=== PATIENT | female | born 1955 | race Caucasian/White ===

== ENCOUNTER 2022-02-17 15:53 | Emergency (ER) | payer MEDICARE, SELFPAY ==
[2022-02-17 16:42] VITALS: BP 194/79; PULSE 71; RESP 18; TEMP 36.9; O2SAT 99
--- NOTE | 2022-02-17 16:42 | ED.SKABFB ---
HPI - Skin/Abscess/Foreign Bdy General Chief complaint: Skin/Abscess/Foreign Body Stated complaint: RASH ON FACE Time Seen by Provider: 02/17/22 16:27 Source: patient, RN notes reviewed and old records reviewed Mode of arrival: ambulatory Limitations: no limitations History of Present Illness HPI narrative: 66-year-old female presents to the [facility] with a pink raised firm area to the medial aspect left eyebrow. Patient reports that it has been there approximately 1 week. Recently finished antibiotics, doxycycline and Cefzil Area is not hot to touch. States that on 30 January she saw her eye doctor. On 03 February was treated for cellulitis of her right arm. Noticed this swelling about 1 week ago. States that she has had shingles in the past. Small abrasion noted to the top of it. No fluctuance. No increased warmth. No vesicular areas. States that she did pluck her eyebrows about a week or 2 ago. Onset (ago): day(s) () Related Data Home Medications Medication Instructions Recorded Confirmed atenolol 50 mg tablet 50 mg DIRECTED 02/17/22 02/17/22 empagliflozin 25 mg tablet 25 mg DIRECTED 02/17/22 02/17/22 (Jardiance) gabapentin 300 mg capsule 300 mg DIRECTED 02/17/22 02/17/22 glimepiride 4 mg tablet 4 mg DIRECTED 02/17/22 02/17/22 insulin degludec 200 unit/mL (3 1 unit subcut DIRECTED 02/17/22 02/17/22 mL) subcutaneous pen (Tresiba FlexTouch U-200 insulin) metformin 500 mg tablet,extended 500 mg PO DIRECTED 02/17/22 02/17/22 release 24 hr simvastatin 40 mg tablet 40 mg DIRECTED 02/17/22 02/17/22 Allergies Allergy/AdvReac Type Severity Reaction Status Date / Time adhesive Allergy Intermediate RASH Verified 11/26/16 10:58 Review of Systems Review of Systems: All systems reviewed & are unremarkable except as noted in HPI and below Constitutional: Constitutional: Reports no additional constitutional complaints, Denies chills and Denies fever(s) Eyes: Eyes: Reports no additional eye complaints ENT: Reports system reviewed and no additional complaints, except as documented Cardiovascular: Cardiovascular: Reports no additional cardiovascular complaints Respiratory: Respiratory: Reports no additional respiratory complaints Gastrointestinal: Gastrointestinal: Reports no additional gastrointestinal complaints Musculoskeletal: Musculoskeletal: Reports no additional musculoskeletal complaints Integumentary/Breasts: Skin/Breast: Reports as per HPI Neurologic: Reports system reviewed and no additional complaints, except as documented Psychiatric: Psychiatric: Reports no additional psychiatric complaints Allergic/Immunologic: Allergic/Immunologic: Reports no additional allergic/immunologic complaints [facility] Past Medical History Medical History (Updated 02/17/22 @ 20:33 by Manasa Khan APRN) Diabetes Comments At the time of my signature, I reviewed and agree with the nursing past medical, surgical, social, and family history. There is no relevant family history pertinent to the patient complaint. Exam Const: General: comfortable, no acute distress, well developed, alert, ill appearing chronically and well nourished Nutritional Appearance: well nourished and obese Orientation/consciousness: patient oriented x3 Limitations: no limitations HENMT: Head: normal to inspection Ears: external ears normal, TM's normal bilaterally and EAC's normal Face/Nose/Sinus: Normal external nose present and Normal nares present Face and sinus: normal facial exam and sinuses nontender Face images: 1. 1 cm firm cystic lesion noted, pink, not red or hot to touch. Patient describes it as itchy and painful. Abrasion noted to the center of the cystic area Mouth: Yes Normal oral and palatal mucosa present, Yes lip normal and Yes moist mucous membranes Throat: posterior oropharynx normal and uvula midline Eyes: General: appearance normal, both eyes and all related structures Conjunctivae: con
[2022-02-17 16:57] VITALS: BP 160/94
== END 2022-02-17 16:57 | disposition home or self-care (01) ==
PROVIDERS: Emergency Provider Nurse Practitioner; PCP Internal Medicine
DX: L03.211 Cellulitis of face (principal); E11.9 Type 2 diabetes mellitus without complications
CPT/HCPCS: 99213; G0463

== ENCOUNTER 2022-12-17 10:56 | Day surgery (SDC) | payer MEDICARE, SELFPAY ==
[2022-12-04 11:28] VITALS: BMI 37.5
[2022-12-17 11:35] VITALS: BP 175/140; PULSE 64; RESP 20; TEMP 36.6; O2SAT 96
--- NOTE | 2022-12-17 11:38 | P.HP_ITS ---
History of Present Illness History of Present Illness Consent: Risks, benefits, and alternatives have been discussed and questions answered. Patient agrees to proceed with procedure. Chief complaint: History of Colon Polyps Narrative: Michelle Caicedo is a 67 year old female Presents for screening colonoscopy. Patient's current weight appetite and bowel movements are normal. Patient denies abdominal pain. She has had no bleeding. Family history noncontri butory. Is colonoscopy 2017 revealed a benign tubular adenoma. Review of Systems Review of Systems: Review of systems is noncontributory. [facility] Past Medical History Medical History (Updated 12/17/22 @ 11:39 by Go Mcmahon MD) Diabetes Social History Social History Smoking status: Never smoker Alcohol intake: current Substance use: never Substance use type: does not use Living arrangements: with family Spiritual care concerns: No Meds Home Medications and Allergies Home Medications Medication Instructions Recorded Confirmed Type atenolol 50 mg tablet 50 mg DIRECTED 02/17/22 12/17/22 History empagliflozin 25 mg tablet 25 mg DIRECTED 02/17/22 12/17/22 History (Jardiance) gabapentin 300 mg capsule 300 mg DIRECTED 02/17/22 12/17/22 History glimepiride 4 mg tablet 4 mg DIRECTED 02/17/22 12/17/22 History insulin degludec 200 unit/mL (3 1 unit subcut DIRECTED 02/17/22 12/17/22 History mL) subcutaneous pen (Tresiba FlexTouch U-200 insulin) metformin 500 mg tablet,extended 500 mg PO DIRECTED 02/17/22 12/17/22 History release 24 hr simvastatin 40 mg tablet 40 mg DIRECTED 02/17/22 12/17/22 History sodium,potassium,mag sulfates 17.5 See Rx Instructions PO .COMPLEX 11/06/22 0 12/17/22 Rx gram-3.13 gram-1.6 gram oral soln #354 mL (Suprep Bowel Prep Kit) Allergies Allergy/AdvReac Type Severity Reaction Status Date / Time adhesive Allergy Intermediate RASH Verified 12/17/22 11:34 Vital Signs Vital Signs - 24 hr 12/17/22 11:35 Temperature 98 F Pulse Rate 64 Respiratory Rate 20 Blood Pressure 175/140 H Pulse Oximetry 96 Oxygen Delivery Room Air Exam Narrative: Physical exam reveals patient to be alert. Vital signs stable. HEENT exam is unremarkable patient is anicteric. Lungs are clear to auscultation and percussion. Heart is without murmur or extra sounds. Abdomen bowel sounds are present soft nontender with no organomegaly. Digital external rectal exam is normal. Assessment and Plan Assessment and plan (1) History of colon polyps: Code(s): Z86.010 - Personal history of colonic polyps Status: Acute Assessment and Plan: She has a prior history of benign colon polyp. Plan for surveillance colonoscopy now and consider this a 5 year intervals.
[2022-12-17 11:53] LABS: Glucose Point of Care 92 mg/dl (65-105)
[2022-12-17] MEDS: LACTATED RINGERS 1,000 ML 150 ML IV CONT (11:58)
--- NOTE | 2022-12-17 11:58 | SUR.PREOP ---
DR SHIPLEY NOTIFIED OF BLOOD SUGAR 92. HE IS AWARE OF PT'S HIGH BP UPON ARRIVAL.
--- NOTE | 2022-12-17 12:14 | P.PNAN_ITS ---
Anes - Initial Pre Proc Eval Procedure: Operation Date: 12/17/22 12:30 Proposed Procedures p Screening Colonoscopy - Go Mcmahon MD Date/Time: 12/17/22 12:14 Surgeon: Go Mcmahon MD Pre Op Diagnosis: History of Colon Polyps Patient Data Age: 67 Gender: F Height: 1.57 m Weight: 92.3 kg Last Vital Signs Temp 36.6 C 12/17/22 11:35 Pulse 64 12/17/22 11:35 Resp 20 12/17/22 11:35 BP 175/140 H 12/17/22 11:35 Pulse Ox 96 12/17/22 11:35 O2 Del Method Room Air 12/17/22 11:35 Allergies Allergy/AdvReac Type Severity Reaction Status Date / Time adhesive Allergy Intermediate RASH Verified 12/17/22 11:34 Home Medications Medication Instructions Recorded Confirmed Type atenolol 50 mg tablet 50 mg DIRECTED 02/17/22 12/17/22 History empagliflozin 25 mg tablet 25 mg DIRECTED 02/17/22 12/17/22 History (Jardiance) gabapentin 300 mg capsule 300 mg DIRECTED 02/17/22 12/17/22 History glimepiride 4 mg tablet 4 mg DIRECTED 02/17/22 12/17/22 History insulin degludec 200 unit/mL (3 1 unit subcut DIRECTED 02/17/22 12/17/22 History mL) subcutaneous pen (Tresiba FlexTouch U-200 insulin) metformin 500 mg tablet,extended 500 mg PO DIRECTED 02/17/22 12/17/22 History release 24 hr simvastatin 40 mg tablet 40 mg DIRECTED 02/17/22 12/17/22 History sodium,potassium,mag sulfates 17.5 See Rx Instructions PO .COMPLEX 11/06/22 12/17/22 Rx gram-3.13 gram-1.6 gram oral soln #354 mL (Suprep Bowel Prep Kit) Laboratory Tests 12/17/22 11:51 POC Capillary Glucose 92 mg/dl (65-105) Patient hx anesthesia problems: none Family hx anesthesia problems: none Results Review: All pre-operative results and documents have been reviewed as part of the pre- operative evaluation. [facility] Past Medical History Medical History Diabetes Social History Social History Smoking status: Never smoker Alcohol intake: current Substance use: never Substance use type: does not use Living arrangements: with family Spiritual care concerns: No Anes - Eval Final PreProcedure Day of Procedure 12/17/22 12:14 Patient weight: obese Heart: regular rate and rhythm Lungs: clear to auscultation Airway: Mallampati scale class II Neurological: alert and oriented Last oral intake: >/= 8 hours ASA classification: III Emergent: no Anesthetic plan: proceed Anesthesia type and monitoring: general GIVS and standard monitoring Results Review: All pre-operative results and documents have been reviewed as part of the pre- operative evaluation. Informed Consent: The patient's anesthetic plan and its attendant risks and benefits were discu ssed with the patient/family/POA. Questions were solicited and answers provided to the satisfaction of the patient/family/POA.
[2022-12-17 12:43] VITALS: BP 128/94; PULSE 72; RESP 16; O2SAT 98
[2022-12-17 12:53] VITALS: BP 143/79; PULSE 73; RESP 18; O2SAT 99
[2022-12-17 13:03] VITALS: BP 137/92; PULSE 68; RESP 18; O2SAT 98
--- NOTE | 2022-12-17 13:19 | WPDANESPN ---
Anes - Prog Note Post-Op Date/Time: 12/17/22 13:19 Cardiovascular status: normal Respiratory status: normal Airway patency: baseline Mental status: baseline Post-Op hydration status: normal Vital Signs: Last Vital Signs Temp 36.6 C 12/17/22 11:35 Pulse 68 12/17/22 13:03 Resp 18 12/17/22 13:03 BP 137/92 H 12/17/22 13:03 Pulse Ox 98 12/17/22 13:03 O2 Del Method Room Air 12/17/22 13:03 Pain Score (VAS): 0 I/O: Intake & Output 12/16/22 12/17/22 12/17/22 23:59 07:59 15:59 Intake Total 400 Balance 400 12/17/22 11:51 POC Capillary Glucose 92 Patient Feedback: Patient satisfied with anesthetic care.
== END 2022-12-17 13:25 | disposition home or self-care (01) ==
PROVIDERS: PCP Internal Medicine; Visit Provider Internal Medicine Gastroenterology
PROC: 0DJD8ZZ Inspection of Lower Intestinal Tract, Via Natural or Artificial Opening Endoscopic (ICD-10-PCS; CPT 45378; principal; 2022-12-17 12:30)
DX: Z86.010 Personal history of colon polyps (principal); K64.8 Other hemorrhoids
CPT/HCPCS: 45378

== ENCOUNTER 2025-02-02 11:17 | Outpatient (CLI) | payer MEDICARE, SELFPAY ==
--- OUTSIDE RECORDS SUMMARY | 2025-02-02 11:57 | XMS_ITS | Clinical Summary ---
Author Organization [facility] Address [address] [facility] [place] [address] Care Team Providers Care Social Work Specialist Name Role Phone Maycol Brown MD Unavailable [phone] Too Kinney MD Unavailable Unavailable Eliud Manzano MD Unavailable [phone] Pcp, [facility] Primary Care Provider Unavailable Duke Frances MD Unavailable [phone] Swetha Garland Unavailable [phone] Chiqui Mason MD Unavailable Source Comments [facility],non-owned Affiliates and Associated Physician Practices is amultiple site organization consisting of ambulatory clinics and hospital sitesin [place], [place], [place] and [place]. This disclosure is being madepursuant to the Care Everywhere program and may not contain all information available regarding this patient. Last updated 17.[facility] Allergies Active Allergy Reactions Criticality Noted Date Comments Adhesive Sensitivity Rash Medium 11/05/2015 Latex Rash Medium 11/05/2015 Medications * Be aware that medications may not be up to date on this document. Alwaysverify current medications with the patient. acetaminophen (TYLENOL) 500 MG tablet Take 2 Tabs by mouth daily as needed for Pain. Maximum allowable Acetaminophen amount = 4 Grams / 24 hours. 0 01/15/20 10 Active Arm SleeveIndication s:Lymphedema Apply 1 Each to affected area as directed. 1 Each 0 11/07/19 11 Active vitamin D, cholecalciferol, 1000 UNIT tablet Take 1 Tab by mouth once daily. 0 05/18/19 13 Active betamethasone dipropionate augmented (DIPROLENE AF) 0.05 % cream Apply to affected area bid prn. All over 2 08/28/19 18 Active Ascorbic Acid (VITAMIN C) 100 MG Take 1 (one) tablet by mouth once daily Active Multiple Vitamins-Mineral s (MULTIVITAMIN WOMEN PO) Take 2 tablets by mouth once daily Active ibuprofen (MOTRIN) 400 MG tablet Take 1 tablet by mouth every 6 hours as needed for Pain 24 tablet 07/14/19 19 Active PREVIDENT 5000 BOOSTER PLUS 1.1 % Use twice daily. 01/27/20 21 Active Other Zinc 2 daily. Unsure of mg Active docusate sodium (COLACE) 100 MG capsule Take 1 (one) capsule by mouth once daily as needed 01/29/20 21 Active polyethylene glycol 3350 (MIRALAX) 17 g packet Take 17 (seventeen) g by mouth once daily as needed 01/29/20 21 Active mupirocin (Bactroban) 2 % ointment Apply to affected area prn 02/18/20 22 Active metFORMIN ER 24hr (Glucophage XR) 500 MG tablet Take 1 Tablet (500 mg) by mouth 3 times daily with meals. 270 tablet 03/11/20 23 Active LORazepam (Ativan) 0.5 MG tablet Take 1 Tablet (0.5 mg) by mouth nightly as needed for anxiety. 15 tablet 05/10/19 24 Active EPINEPHrine (Epipen) 0.3 MG/0.3ML auto-injector pen Inject 0.3 mL into muscle once as needed 2 Each 07/07/19 24 Active rsv vaccine preg or 60y+ (Abrysvo) 120 MCG/0.5ML SOLR injection Inject 0.5 mL into muscle once 07/07/19 24 Active gabapentin (Neurontin) 300 MG capsuleIndicatio ns:Neuropathy Take 1 capsule in the morning, 1 capsule at noon, and up to 2 capsules at bedtime. 360 capsule 3 11/22/19 24 Active ondansetron, disintegrating, (Zofran ODT) [address] 1 Tablet (4 mg) under tongue every 6 hours as needed for nausea/vomiting. 100 tablet 1 12/06/19 24 Active rosuvastatin (Crestor) 5 MG tablet Take 1 (one) tablet by mouth once daily 90 tablet 12/20/19 24 Active insulin pen needle (Sure Comfort Pen Golf) 32G X 6 MM MISCIndications: Diabetes mellitus type 2, insulin dependent (HCC) Use as directed daily for injections. 100 Each 03/13/20 24 Active atenolol (Tenormin) 50 MG tablet Take 2 Tablets (100 mg) by mouth daily. 200 tablet 1 03/17/20 24 Active empagliflozin (Jardiance) 25 MG tablet Take 1 (one) tablet by mouth once daily 90 tablet 06/28/19 25 Active insulin pen needle (Unifine Pentips Plus) 31G X 5 MM needleIndication s:Type 2 diabetes mellitus with diabetic polyneuropathy, without long-term current use of insulin (HCC) once daily 100 Each 06/28/19 25 Active glimepiride (Amaryl) 4 MG tablet Take 1 (one) tablet by mouth daily with breakfast 90 tablet 06/28/19 25 Active insulin degludec (Tresiba FlexTouch) 200 UNIT/ML pen Inject 62 (sixty two) Units subcutaneously once daily 30 mL 06/28/19 25 Active Active Problems Problem Noted Date Diagnosed Date BMI 40.0-44.9, adult 10/27/2021 Gastroesophageal reflux disease without esophagi tis 06/19/2020 History of endometrial cancer 09/07/2019 Overview (04/22/2021): 01/28/2021 Dr. Carlos JOAQUIN Long-term insulin use 05/24/2019 Overview (04/22/2021): 01/28/2021 Dr. Carlos JOAQUIN Type 2 diabetes mellitus wit h diabetic polyneuropathy, without long-term current use of insulin 07/03/2015 Overview (04/22/2021): 01/28/2021 Dr. Carlos JOAQUIN Lymphedema 10/23/2010 Essential hypertension, benign Hyperlipidemia LDL goal <70 Vitamin D deficiency Resolved Problems Problem Noted Date Diagnosed Date Resolved Date Uncontrolled type 2 diabetes mellitus with hyperglycemia 09/07/2019 07/07/2023 Overview (04/22/2021): 01/28/2021 Dr. Carlos JOAQUIN Uncontrolled type 2 diabetes mellitus without complication, with long-term current use of insulin 06/07/2014 04/30/2020 Cellulitis 10/23/2010 11/20/2014 Cervical cancer screening Overview (03/14/2009): 07/03 Breast cancer screening 06/27 Overview (03/14/2009): 03/05 Osteoporosis screening 07/06 Overview (03/14/2009): 07/02 Endometrial polyp 07/07/2023 Endometrial thickening on ultrasound 07/07/2023 Encounters Date Type Department Care Team Description 01/11/2025 Refill [facility] - Endocrinology [address], [address] [place] [address] Pako Larios MD Refill Request 01/08/2025 Patient Outreach [facility] - Care Coordination [address] [place] [id number] Swetha Garland. Outreach Preventive Care from Last 3 Months Immunizations Immunization Administration Dates Next Due INFLUENZA VACCINE, TRIV. (AF LURIA, FLUZONE TRIVALENT; 6MO+) (IIV3) 12/29/2011 HEP A VACCINE, ADULT 08/09/2013,02/01/2013 INFLUENZA VACCINE 01/02/2019, 8,01/01/2016,2014,12/25/2013,12/29/2011,12/31/2010,1 ,12/28/2007,12/27/2005 INFLUENZA VACCINE, ADJUVANTE D, QUADR. (FLUAD QUADRIVALENT; 65Y+) (AIIV4) 03/09/2023,03/11/2022 INFLUENZA VACCINE, HIGH-DOSE , QUADR. (FLUZONE HIGH-DOSE QUADRIVALENT; 65Y+), 0.7 ML (HD-IIV4) 01/18/2021,01/03/2020 PNEUMOCOCCAL PCV20 CONJ VAC IM 11/03/2022 PNEUMOCOCCAL PPSV23 03/29/2004 Pneumococcal Pcv13 Conj 05/25/2019 TDAP, HISTORIC VACCINE 02/01/2013 Family History Medical History Relation Name Comments CAD (Coronary Artery Disease) Brother age 61 Diabetes Brother Thyroid Disease Daughter 1 #1 nodule Thyroid Disease Daughter 2 #2 most of thyr oid removed Heart Disease Father Diabetes Mother Hypertension Mother Neuropathy Mother Other Paternal Grandmother cirrhos is of liver Relation Name Status Comments Brother Daughter 1 #1 Daughter 2 #2 Father Alive Mother Alive Paternal Grandmother Social History Tobacco Use Types Packs/Day Years Used Date Smoking Tobacco: Never Smokeless Tobacco: Never Tobacco Cessation:Counseling Given: Not Answered Alcohol Use Standard Drinks/Week Comments Yes 0 (1 standard drink = 0.6 oz pur e alcohol) rare PHQ-2 Answer Date Recorded Patient Health Questionnaire-2 Score 0 09/18/2024 Comments No Sex and Gender Information Value Date Recorded Sex Assigned at Not on file 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 Gender Identity Not on file Sexual Orientation Not on file Last Filed Vital Signs Vital Sign Reading Time Taken Comments Blood Pressure 130/74 09/18/2024 1:29 PM CDT Pulse 61 11/16/2023 12:21 PM CDT Temperature 36.9 C (98.5 F) 11/16/2023 12:21 PM CDT Respiratory Rate 16 11/03/2022 1:54 PM CDT Oxygen Saturation 99% 11/16/2023 12:21 PM CDT Inhaled Oxygen Concentration - - Weight 94.8 kg (209 lb) 09/18/2024 1:29 PM CDT Height 157.5 cm (5' 2) 09/18/2024 1:29 PM CDT Body Mass Index 38.23 09/18/2024 1:29 PM CDT Plan of Treatment Upcoming Encounters Date Type Department Care Team (Late st Contact Info) Description 09/17/2025 1:30 PM CDT Office Visit [facility] - COMMISSION SPECIALIST [address] [place] [address] Jose Palacio MD [address] [facility] [address] [place] [address] Health Maintenance Due Date Last Done Comments BONE DENSITY TESTING 1955 COLOGUARD (AGES 45-75) - COLON CA SCREENING 1954 CT COLONOGRAPHY - COLON CA SCREENING 1955 FIT - COLON CA SCREENING 1955 FLEX SIG - COLON CA SCREENING 1955 ZOSTER VACCINE (1 of 2) 2004 Respiratory Syncytial Virus (RSV) Vaccine Pt: or over 60 yrs (1 - Risk 60-74 years 1-dose series) 2014 DTAP/TDAP/TD VACCINES (2 - Td or Tdap) 02/01/2023 02/01/2013 DIABETES-SERUM CREATININE 10/31/20232022, 06/03/2021, 09/24/2020, Additional history exists DIABETES-FOOT EXAM WITH MONOFILAMENT 03/09/2024 03/09/2023, 02/28/2014, 10/11/2013, Additional history exists DIABETES - URINE PROTEIN SCREENING 03/29/2024 10/30/2022, 06/03/2021, 09/24/2020, Additional history exists MEDICARE AWV CALENDAR YEAR 2024 07/07/2023, 06/16/2022, 06/03/2021, Additional history exists DIABETES-HGB A1C 05/18/2024 11/16/2023, 12/2023, 03/09/2023, Additional history exists MAMMOGRAM 07/06/2024 07/07/2023, 03/2007, 02/27/2008 (Previously completed) COVID-19 VACCINE ( season) 2024 07/17/2020, 06/19/2020 INFLUENZA VACCINE (#1) 2024 , 03/09/2023, 03/11/2022, Additional history exists DIABETES RETINOPATHY SCREENING 02/01/2025 02/01/2023, 07/06/2018, 11/22/2015, Additional history exists COLON MONITORING 12/18/2027 12/17/2022, 12/03/2016 Colorectal Cancer Screening 12/18/2027 COLONOSCOPY - COLON CA SCREENING 12/17/2032 12/17/2022, 12/03/2016, 06/27/2006 (Previously completed) HEPATITIS C SCREENING Completed 03/19/2016 PNEUMOCOCCAL VACCINE 50+ Completed 023, 05/25/2019, 03/29/2004 DEPRESSION SCREENING Completed 09/18/2024, 07/07/2023, 06/16/2022, Additional history exists HEPATITIS B VACCINE Aged Out No longe r eligible based on patient's age to complete this topic HIB VACCINE Aged Out No longer eligi ble based on patient's age to complete this topic HPV VACCINE Aged Out No longer eligi ble based on patient's age to complete this topic MENINGOCOCCAL (Group B) VACCINE SHARED DECISION-MAKING Aged Out No longer eligible based on patient's age to complete this topic MENINGOCOCCAL GROUPS A/C/Y/W VACCINE Aged Out No longer eligible based on patient's age to complete this topic Goals Goal Patient Goal Type Associated Problems Recent Progress Patient-Stated? Author Blood Pressure < 140/90 Blood Pressure 130/74(2024 1:29 PM CDT) No Taylor Leyva HEMOGLOBIN A1C < 7.0 Result Component 8.3( 11:16 AM CDT) No Taylor Leyva Procedures Procedure Name Priority Date/Time Associated Diagnosis Comments HEMOGLOBIN A1C - POINT OF CARE (AMB) Routine 11/16/2023 12:26 PM CDT Type 2 diabetes mellitus with diabetic polyneuropathy, without long-term current use of insulin MAMMO LEFT SCREENING W OMA Routine 07/07/2023 11:27 AM CDT Visit for screening mammogram EYE EXAM 02/01/2023 COLONOSCOPY 12/17/2022 MICROALB/CREAT RATIO URINE RANDOM PANEL Routine 10/30/2022 11:16 AM CDT Uncontrolled type 2 diabetes mellitus with hyperglycemia COMPREHENSIVE METABOLIC PANEL Routine 10/30/2022 11:16 AM CDT Essential hypertension, benign HEPATITIS C ANTIBODY Routine 03/19/2016 8:51 AM 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 Need for hepatitis C screening test from Last 3 Months or Most Recently Relevant to Health Maintenance Results * HEMOGLOBIN A1C - POINT OF CARE (HgbA1C) (11/16/2023 12:26 PM CDT) Hemoglobin A1c POCT 7.1 % [facility] Expiration Date 07.29.25 [facility] Lot # [id number] [facility] QC Verified Yes Yes [facility] Blood BLOOD SPECIMEN / Unknown 11/16/2023 12:26 PM CDT us Chiqui Mason MD LAB - POINT OF CARE ORDERABLES F inal Result [facility] [address] [phone] * MAMMO LEFT SCREENING W OMA (07/07/2023 11:27 AM CDT) Anatomical Region Laterality Modality Breast Left Mammography 07/07/2023 12:5 9 PM CDT Impressions 07/07/2023 1:10 PM CDT : Annual screening mammography of the LEFT breast is recommended. OVERALL FINAL ASSESSMENT: BI-RADS Category 1: Negative. > Interpreting Provider: Razia Ascencio MD on 07/07/2023 1:10 PM Narrative 07/07/2023 1:10 PM CDT EXAMINATION: UNILATERAL LEFT DIGITAL SCREENING MAMMOGRAM AND UNILATERAL LEFT BREAST TOMOSYNTHESIS HISTORY: Screening. 68-year-old woman with personal history of RIGHT mastectomy routine screening of the LEFT breast. COMPARISON: 09/24/2020, 09/14/2017, 06/04/2014 TECHNIQUE: Unilateral left digital breast tomosynthesis (DBT) and synthetic 2D digital mammogram images were obtained (unilateral left craniocaudal and oblique projections) including computer aided detection (CAD.) LEFT BREAST PARENCHYMAL COMPOSITION: Category B: There are scattered areas of fibroglandular density. MAMMOGRAM FINDINGS: There is no suspicious finding in the LEFT breast. Overall, there has been no significant interval change. us Chiqui Mason MD MAMMO ORDERABLES Final Result * EYE EXAM (02/01/2023) Anatomical Region Laterality Modality Other 02/01/2023 Narrative 02/01/2023 Ordered by an unspecified provider. us Scanned Document SCANNING ONLY Final Result * COLONOSCOPY (12/17/2022) 12/17/2022 Narrative 12/17/2022 Ordered by an unspecified provider. us Scanned Document SCANNING ONLY Final Result * MICROALB/CREAT RATIO URINE RANDOM PANEL (10/30/2022 11:16 AM CDT) Creatinine Urine 61.9 Not Estab. mg/dL [facility] ACCOUNT BILL Microalbumin Urine 6.8 Not Estab. ug/mL [facility] ACCOUNT BILL Microalbumin/Crea tinine Ratio 11 0 - 29 mg/g creat [facility] ACCOUNT BILL Comment: Normal: 0 - 29 Moderately increased: 30 - 300 Severely increased: >300 FASTING Urine URINE SPECIMEN OBTAINED BY CLEAN CATCH PROCEDURE / Unknown 10/30/2022 11:16 AM CDT 10/30/2022 Narrative Resulting Agency Comment Lab Testing performed at: [facility] [address] [facility] [id number] us Alec Gonzalez MD LAB - URINE CHEMISTRY ORDERABLES Final Result [facility] ACCOUNT BILL [address] [place] [address] * (ABNORMAL) COMPREHENSIVE METABOLIC PANEL (10/30/2022 11:16 AM CDT) Glucose 110(H) 70 - 99 mg/dL [facility] ACCOUNT BILL BUN 13 8 - 27 mg/dL [facility] ACCOUNT BILL Creatinine 0.84 0.57 - 1.00 mg/dL [facility] ACCOUNT BILL eGFR by CKD-EPI 76 >59 mL/min/1.7 3 [facility] ACCOUNT BILL BUN/Creatinine Ratio 15 12 - 28 [facility] ACCOUNT BILL Sodium 141 134 - 144 mmol/L [facility] ACCOUNT BILL Potassium 4.3 3.5 - 5.2 mmol/L [facility] ACCOUNT BILL Chloride 104 96 - 106 mmol/L [facility] ACCOUNT BILL CO2 23 20 - 29 mmol/L [facility] ACCOUNT BILL Calcium 9.8 8.7 - 10.3 mg/dL [facility] ACCOUNT BILL Protein Total 6.8 6.0 - 8.5 g/dL [facility] ACCOUNT BILL Albumin 4.1 3.9 - 4.9 g/dL [facility] ACCOUNT BILL Globulin Total 2.7 1.5 - 4.5 g/dL [facility] ACCOUNT BILL Albumin/Globulin Ratio 1.5 1.2 - 2.2 [facility] ACCOUNT BILL Bilirubin Total 0.5 0.0 - 1.2 mg/dL [facility] ACCOUNT BILL Alkaline Phosphatase 128(H) 44 - 121 IU/L [facility] ACCOUNT BILL AST 24 0 - 40 IU/L [facility] ACCOUNT BILL ALT 13 0 - 32 IU/L [facility] ACCOUNT BILL Comment:FASTING Blood BLOOD SPECIMEN / Unknown 10/30/2022 11:16 AM CDT 10/30/2022 Narrative Resulting Agency Comment Lab Testing performed at: [address] [id number] Alec Gonzalez MD LAB - CHEMISTRY ORDERABLES Final Result Performing Organization Address [facility] de Phone Number [facility] ACCOUNT BILL [address] [place] [address] * HEPATITIS C ANTIBODY (03/19/2016 8:51 AM 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 The CDC recommends that a positive HCV antibody result be followed up with a HCV Nucleic Acid Amplification test (637973). 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 [id number] Alec Gonzalez MD LAB - CHEMISTRY ORDERABLES Final Result Performing Organization Address City/[facility] Co de Phone Number [facility] ACCOUNT BILL [address] [place] [address] from Last 3 Months or Most Recently Relevant to Health Maintenance Insurance [facility] MANAGED MEDICARE ADV [facility] MANAGED MEDICARE ADV Advance Directives * Full Code (Latest Code Status on File) Date Activated Date Inactivated Comments 08/03/2018 12:19 PM 08/04/2018 4:35 PM * FULL RESUSCITATION Date Activated Date Inactivated Comments 10/23/2010 2:10 PM 10/29/2010 3:45 AM Care Teams Social Work Specialist Relationship Specialty Start Date End Date [facility] P[facility] - General 01/27/24 Duke Frances MD [address] [place] [address] PCP - Attributed-[facility] 11/27/24 Chiqui Mason MD [facility] [facility] [place] [address] PCP - Attributed-[facility] ST [facility] 12/27/24 Maycol Brown MD [address] [place] [address] Gastroenterology 06/20/13 Too Kinney MD [address] [place] [address] Dermatology 11/05/15 Eliud Manzano MD [address] [place] [address] Gastroenterology 07/08/22 Swetha Garland Care Coordination Specialist Care Management 01/08/25
--- OUTSIDE RECORDS SUMMARY | 2025-02-02 11:57 | XMS_ITS | Clinical Summary ---
Author Organization [facility] Address [address] [place] [address] Care Team Providers Care Garment Presser Name Role Phone None, Provider Primary Care Provider Unavaila ble Immunizations Immunization Administration Dates Next Due MODERNA COVID-19 (12+) MRNA, LNP-S, PF, 100 MCG/ 0.5 ML DOSE 07/17/2020,06/19/2020 Social History Tobacco Use Types Packs/Day Years Used Date Smoking Tobacco: Never Assessed Comments Unknown Sex and Gender Information Value Date Recorded Sex Assigned at Not on file Legal Sex Female 3:07 PM CDT Gender Identity Not on file Sexual Orientation Not on file Plan of Treatment Health Maintenance Due Date Last Done Comments Colorectal Cancer Screening Colonoscopy (10 Years) 1954 Hepatitis C 1972 DTaP, Tdap and Td Vaccines (1 - Tdap) 1973 Mammogram Screening 1994 Zoster Vaccines (1 of 2) 2004 Dexa Scan (General) 2019 Pneumococcal Vaccine: 50+ Years (3 of 3 - PCV20 or PCV21) 05/25/2024 05/25/2019, 03/29/2004 COVID-19 Vaccine (3 - season) 2024 07/17/2020, 06/19/2020 Influenza Adult (#1) 2024 01/04/2020, 01/02/2019, 12/27/2017, Additional history exists RSV Immunization or 60+ Years (1 - 1-dose 75+ series) 2029 Hepatitis A Vaccines Aged Out No long er eligible based on patient's age to complete this topic Meningococcal B Vaccine Aged Out No l onger eligible based on patient's age to complete this topic Meningococcal Vaccine Aged Out No john maxwell eligible based on patient's age to complete this topic RSV Immunizations Under 20 Months Aged Out No longer eligible based on patient's age to complete this topic Care Teams Garment Presser Relationship Specialty Start Date End Date None, Provider, PCP - General 06/19/20
--- OUTSIDE RECORDS SUMMARY | 2025-02-02 11:57 | XMS_ITS | Encounter Summary ---
Author Organization [facility] Address [address] [facility] [address] Care Team Providers Care Security Police Officer Name Role Phone Alec Gonzalez MD Primary Care Provider Maycol Brown MD Unavailable Alfredo Brown MD Unavailable Too Kinney MD Unavailable Unavailable Alec Gonzalez MD Unavailable Eliud Manzano MD Unavailable [phone] Pcp, [facility] Primary Care Provider Unavailable Mandy Clifford Unavailable Chiqui Mason MD Primary Care Provider Jason Lombardi Unavailable Pcp, [facility] Primary Care Provider Unavailable Swetha Garland Unavailable [phone] Marcelo Devine MD, Thomas Fox Unavailable Anisa aidanble Marcelo Devine MD, Thomas Fox Unavailable Anisa jesse Robertson Jr., MD, Thomas Fox Unavailable Anisa vailable Duke Frances MD Unavailable Swetha Garland Unavailable [phone] Chiqui Mason MD Unavailable Reason for Visit * Reason Onset Date Comments Insurance Issue/question 10/07/2010 Pt. con tacted; continues with BCBS and $2500 deductible. Per pt., BCBS still will not provide coverage for preventive care. Pt. also now seen by PCP in [place] - Dr. Elaine Garcia. Will see pt. thrcurt estrella. Encounter Details Date Type Department Care Team (Late Contact Info) Description 10/07/[address] [facility] Breast Care [address] [place] [address] Evelyn Jules RN Insurance Issue/question (Pt. contacted; continues with BC[employer] and $2500 deductible. Per pt., [employer]BS still will not provide coverage for preventive care. Pt. also now seen by PCP in [place] - Dr. Elaine Garcia. Will see pt. 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 Gender Identity Not on file Sexual Orientation Not on file documented as of this encounter Plan of Treatment Upcoming Encounters Date Type Department Care Team (Late Contact Info) Description 09/17/2025 1:30 PM CDT Office Visit [facility] - DAM ATTENDANT [address] [facility] [address] [place] [address] Jose Palacio MD [address] [facility] [address] [place] [address] documented as of this encounter Visit Diagnoses Not on filedocumented in this encounter Care Teams Security Police Officer Relationship Specialty Start Date End Date Alec Gonzalez MD [address] [place] [address] PCP - General 03/14/09 05/05/23 Alec Gonzalez MD [address] [place] [address] PCP - Attributed-[facility] [place] 04/29/19 Pcp, [facility] PCP - General 05/06/23 07/06/23 Chiqui Mason MD PCP - General Internal Medicine 07/07/23 01/26/24 Pcp, [facility] PCP - General 01/27/24 Roland Robertson Jr., MD PCP - Attributed-[facility] [place] 06/27/24 08/13/24 Roland Robertson Jr., MD PCP - Attributed-[facility] 07/27/24 09/13/24 Roland Robertson Jr., MD PCP - Attributed-[facility] 09/26/24 12/26/24 Duke Frances MD [address] [place] [address] PCP - [facility] 11/27/24 Chiqui Mason MD [address] [address] PCP - Attributed-[facility] 12/27/24 Maycol Brown MD [address] [place] [address] Gastroenterology 06/20/13 Alfredo Brown MD [address] [address] Oncology 06/20/13 07/02/15 Too Kinney MD [address] [address] Dermatology 11/05/15 Eliud Manzano MD [address] [place] [address] Gastroenterology 07/08/22 Mandy Clifford Care Coordination Specialist Care Management 06/23/23 08/07/23 Jason Lombardi Care Coordination Specialist Care Management 12/01/23 12/01/23 Swetha Garland Care Coordination Specialist Care Management 06/26/24 08/10/24 Swetha Garland Care Coordination Specialist Care Management 01/08/25 documented as of this encounter
--- OUTSIDE RECORDS SUMMARY | 2025-02-02 11:57 | XMS_ITS | Encounter Summary ---
Author Organization [facility] Address [address] [place] [address] Care Team Providers Care Cane Piler Name Role Phone Maycol Brown MD Unavailable [phone] Too Kinney MD Unavailable Unavailable Alec Gonzalez MD Unavailable Eliud Manzano MD Unavailable [phone] Chiqui Mason MD Primary Care Provider [phone] Pcp, [facility] Primary Care Provider Unavailable Swetha Garland Unavailable [phone] Marcelo Devine MD, Roland Cheung Unavailable Anisa aidanble Marcelo Devine MD, Roland Cheung Unavailable Anisa aidanble Marcelo Devine MD, Roland Cheung Unavailable Anisa vailable Duke Frances MD Unavailable [phone] Swetha Garland Unavailable [phone] Chiqui Mason MD Unavailable Reason for Visit * Reason Onset Date Comments Order 01/18/2024 Encounter Details Date Type Department Care Team (Late st Contact Info) Description 01/18/2024 Telephone [facility] Medical [facility] - Internal Medicine [address] [address] [place] [address] [place], [place] [id number] [place] [address] Order Social History Tobacco Use Types Packs/Day Years Used Date Smoking Tobacco: Never Smokeless Tobacco: Never Alcohol Use Standard Drinks/Week Comments Yes 0 (1 standard drink = 0.6 oz pur e alcohol) rare PHQ-2 Answer Date Recorded Patient Health Questionnaire-2 Score 0 11/16/2023 Comments No Sex and Gender Information Value Date Recorded Sex Assigned at Not on file 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 Sent in for scanning to pt's chart. * Telephone Encounter - Chiqui Mason MD - 01/21/2024 1:37 PM CDT signed * Telephone Encounter - Jay Rangel MA - 01/20/2024 8:05 AM CDT Form received via fax from [employer]. Form placed in folder for Dr. Mason to sign upon her return tomorrow. * Telephone Encounter - Emelia Aldana - 01/18/2024 2:27 PM CDT [employer] faxed forms over on 12/31/[address] Mason to sign regarding breast prosthesis and compressionsleeve. They are faxing again today and need signed and returned sonja. Also fax last ov note. 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 Author Blood Pressure < 140/90 Blood Pressure 130/74(2024 1:29 PM CDT) No Taylor Leyva HEMOGLOBIN A1C < 7.0 Result Component 8.3( 11:16 AM CDT) No Taylor Leyva documented as of this encounter Visit Diagnoses Not on filedocumented in this encounter Care Teams Cane Piler Relationship Specialty Start Date End Date Alec Gonzalez MD [address] [place] [address] PCP - Attributed-[facility] 04/29/19 Chiqui Mason MD [address] [place] [address] PCP - General Internal Medicine 07/07/23 01/26/24 Pcp, [facility] PCP - General 01/27/24 Roland Robertson Jr., MD PCP - Attributed-[facility] 06/27/24 08/13/24 Roland Robertson Jr., MD PCP - Attributed-[facility] P4P 07/27/24 09/13/24 Roland Robertson Jr., MD PCP - Attributed-[facility] P4P 09/26/24 12/26/24 Duke Frances MD [address] [place] [id number] PCP - Attributed-[facility] 11/27/24 Chiqui Mason MD [address] [facility] [place] [address] PCP - Attributed-[facility] P4P 12/27/24 Maycol Brown MD [address] [place] [address] Gastroenterology 06/20/13 Too Kinney MD [address] [place] [address] [facility] 11/05/15 Eliud Manzano MD [address] [place] [address] Gastroenterology 07/08/22 Swetha Garland Care Coordination Specialist Care Management 06/26/24 08/10/24 Swetha Garland Care Coordination Specialist Care Management 01/08/25 documented as of this encounter
--- OUTSIDE RECORDS SUMMARY | 2025-02-02 11:57 | XMS_ITS | Clinical Summary ---
Author Organization [facility] Address [address] Nava: Epic Prelude ADT [place] [address] Care Team Providers Care Utility Worker [place] Name Role Phone Unavailable Primary Care Provider Unavailabl e Allergies No known active allergies Medications LORazepam (ATIVAN) 0.5 mg tablet Take 1 Tablet (0.5 mg) by mouth 1 time daily as needed for anxiety. 15 Tablet 2 7:25 PM CDT 08/19/19 22 Active betamethasone, augmented (DIPROLENE-AF) 0.05 % Ointment Apply to rash twice daily for 2-3 weeks. Overuse can thin skin. 45 Gram 1 3 1:22 PM MARINE MECHANIC 08/20/19 22 Active insulin degludec (Tresiba FlexTouch U-200) 200 unit/mL pen syringe Inject 52 (fifty two) units under the skin once daily 45 mL 3 09/18/19 22 Active empagliflozin (Jardiance) 10 mg tablet Take 1 Tablet (10 mg) by mouth daily. 30 Tablet 3 12/04/19 22 Active insulin degludec (Tresiba FlexTouch U-200) 200 unit/mL pen syringe Inject 56 Units by subcutaneous injection daily. 30 mL 3 2:11 PM CDT 12/04/19 22 Active mupirocin (BACTROBAN) 2 % Ointment Apply to the affected area(s) three times daily. 22 Gram 2 6:32 PM MARINE MECHANIC 02/18/20 22 Active doxycycline hyclate (VIBRAMYCIN) 100 mg tablet Take 1 Tablet (100 mg) by mouth 2 times daily for 10 days 20 Tablet 03/16/20 22 Active insulin degludec (Tresiba FlexTouch U-200) 200 unit/mL pen syringe Inject 56 (fifty six) Units subcutaneously once daily 30 mL 3 12:22 PM CDT 06/23/19 Active metFORMIN (GLUCOPHAGE XR) 500 mg Extended Release 24 hour tablet Take 1 (one) tablet by mouth 3 times daily 276 Tablet 3 12:06 PM CDT 06/23/19 Active semaglutide (Ozempic) 0.25 mg or 0.5 mg (2 mg/3 mL) Pen Injector Inject 0.25 mg subcutaneously every 7 days 3 mL 3 3 12:06 PM CDT 06/23/19 Active betamethasone, augmented (DIPROLENE-AF) 0.05 % Ointment APPLY TO RASH TWICE DAILY FOR 2 TO 3 WEEKS. OVERUSE CAN THIN SKIN. 45 Gram 1 3 2:10 PM CDT 08/26/19 Active sodium, potassium and magnesium sulfates (SUPREP) 17.5-3.13-1.6 gram Recon Soln TAKE DIRECTED 354 mL 3 2:57 PM CDT 11/07/19 Active insulin degludec (Tresiba FlexTouch U-200) 200 unit/mL pen syringe Inject 62 Units by subcutaneous injection once daily. 30 mL 3 4 5:27 PM CDT 12/02/19 Active ondansetron (ZOFRAN ODT) 4 mg Tablet, Rapid Dissolve Place 1 Tablet (4 mg) under tongue every 6 hours as needed for nausea/vomiting. 100 Tablet 1 4 1:10 PM MARINE MECHANIC 01/12/20 Active LORazepam (ATIVAN) 0.5 mg tablet Take 1 Tablet (0.5 mg) by mouth nightly as needed for anxiety. 15 Tablet 3 10:42 AM CDT 01/13/20 Active atenoloL (TENORMIN) 50 mg tablet Take 2 Tablets (100 mg) by mouth daily. 200 Tablet 1 4 1:25 PM CDT 02/02/20 23 Active gabapentin (NEURONTIN) 300 mg capsule Take 1 Capsule (300 mg) by mouth daily at bedtime. 100 Capsule 1 4 1:10 PM MARINE MECHANIC 03/08/20 23 Active tirzepatide (Mounjaro) 2.5 mg/0.5 mL Pen Injector Inject 2.5 (two and one-half) mg subcutaneously every 7 days 2 mL 03/09/20 23 Active metFORMIN (GLUCOPHAGE XR) 500 mg Extended Release 24 hour tablet Take 1 Tablet (500 mg) by mouth 3 times daily with meals. 270 Tablet 3 6:06 PM MARINE MECHANIC 03/11/20 23 Active LORazepam (ATIVAN) 0.5 mg tablet Take 1 Tablet (0.5 mg) by mouth nightly as needed for anxiety. 15 Tablet 4 11:54 AM MARINE MECHANIC 05/10/19 24 Active fluoride, sodium, (PreviDent 5000 Plus) 1.1 % Cream BRUSH ONCE DAILY BEFORE BEDTIME 51 Gram 3 4 3:10 PM MARINE MECHANIC 06/23/19 24 Active respiratory syncytial virus, pref A and B, PF, (Abrysvo) 120 mcg/0.5 mL Recon Soln Inject 0.5 mL into muscle once for 1 dose 0.5 mL 07/07/19 24 Active EPINEPHrine (EPIPEN) 0.3 mg/0.3 mL Auto-Injector Inject 0.3 mL into the muscle once as needed. 2 Each 4 6:28 PM CDT 07/07/19 24 Active empagliflozin (Jardiance) 10 mg tablet Take 1 Tablet (10 mg) by mouth daily. 90 Tablet 4 3:10 PM MARINE MECHANIC 07/09/19 24 Active betamethasone, augmented (DIPROLENE-AF) 0.05 % Ointment Apply to rash twice daily for 2-3 weeks. Overuse can thin skin. 45 Gram 1 4 12:12 PM CDT 08/17/19 24 Active Insulin [place], Disposable, 32 gauge x 1/4 Needle Use as directed daily for injections. 100 Each 1 4 2:23 PM CDT 08/18/19 24 Active insulin degludec (Tresiba FlexTouch U-200) 200 unit/mL pen syringe Inject 62 Units by subcutaneous injection once daily. 30 mL 4 3:14 PM CDT 11/01/19 24 Active empagliflozin (Jardiance) 25 mg tablet Take 1 (one) tablet by mouth once daily 90 Tablet 5 10:08 AM CDT 11/16/19 24 Active gabapentin (NEURONTIN) 300 mg capsule Take 1 capsule in the morning, 1 capsule at noon, and up to 2 capsules at bedtime. 360 Capsule 3 5 12:57 PM CDT 11/22/19 24 Active ondansetron (ZOFRAN ODT) 4 mg Tablet, Rapid Dissolve Place 1 Tablet (4 mg) under the tongue every 6 hours as needed for nausea/vomiting. 100 Tablet 1 4 3:10 PM MARINE MECHANIC 12/06/19 24 Active glimepiride (AMARYL) 4 mg tablet Take 1 Tablet (4 mg) by mouth daily with breakfast. 90 Tablet 4 5:22 PM MARINE MECHANIC 02/28/20 24 Active insulin degludec (Tresiba FlexTouch U-200) 200 unit/mL pen syringe Inject 62 Units by subcutaneous injection once daily. 30 mL 4 3:10 PM MARINE MECHANIC 03/13/20 24 Active Insulin [place], Disposable, 32 gauge x 1/4 Needle Use as directed daily for injections. 100 Each 4 3:10 PM MARINE MECHANIC 03/13/20 24 Active empagliflozin (Jardiance) 25 mg tablet Take 1 Tablet (25 mg) by mouth daily. 90 Tablet 5 12:57 PM CDT 06/28/19 25 Active Insulin [place], Disposable, (Unifine Pentips Plus) 31 gauge x 3/16 Needle USE ONCE DAILY TO INJECT INSULIN 100 Each 5 11:42 AM CDT 06/28/19 25 Active betamethasone, augmented (DIPROLENE-AF) 0.05 % Ointment Apply to rash two times daily for 2 to 3 weeks. Overuse can thin skin. 45 Gram 1 5 12:32 PM CDT 08/17/19 25 Active atenoloL (TENORMIN) 50 mg tablet Take 2 Tablets (100 mg) by mouth daily. 180 Tablet 1 5 12:57 PM CDT 11/17/19 25 Active glimepiride (AMARYL) 4 mg tablet Take 1 Tablet (4 mg) by mouth daily with breakfast. 90 Tablet 1 5 12:57 PM CDT 11/17/19 25 Active ondansetron (ZOFRAN ODT) 4 mg Tablet, Rapid Dissolve Dissolve 1 Tablet (4 mg) by mouth every 6 hours as needed for nausea and vomiting. 30 Tablet 1 5 3:09 PM CDT 11/17/19 25 Active Insulin [place], Disposable, (TechLITE Pen Needle) 31 gauge x 06/11 Needle Use once daily to inject insulin 100 Each 5 12:57 PM CDT 11/17/19 25 Active rosuvastatin (CRESTOR) 5 mg tablet Take 1 Tablet (5 mg) by mouth daily. 90 Tablet 1 5 12:57 PM CDT 11/17/19 25 Active empagliflozin (Jardiance) 10 mg tablet Take 1 Tablet (10 mg) by mouth daily in the morning. 30 Tablet 1 5 3:09 PM CDT 11/21/19 25 Active LORazepam (ATIVAN) 0.5 mg tablet Take one tablet (0.5 mg) orally daily As Needed for anxiety 5 Tablet 5 3:09 PM CDT 01/12/20 25 Active insulin degludec (TRESIBA) 200 unit/mL pen syringe Inject 62 Units by subcutaneous injection daily. 30 mL 1 5 12:26 PM CDT 01/13/20 25 Active insulin degludec (Tresiba FlexTouch U-200) 200 unit/mL pen syringe Inject 62 (sixty two) units subcutaneously once daily 30 mL 5 12:57 PM CDT 06/28/19 25 025 Discontin ued(Reord er) LORazepam (ATIVAN) 0.5 mg tablet Take 1 tablet by mouth daily as needed for anxiety 5 Tablet 5 2:57 PM CDT 11/24/19 25 025 Discontin ued(Reord er) Encounters Date Type Department Care Team Description 12/05/2024 External Device Data ST[facility] ABSTRACTION Provider, Abstract from Last 3 Months Immunizations Immunization Administration Dates Next Due INFLUENZA VACCINE HIGH DOSE TRIVALENT SPLIT VIRUS, (65 YR UP), 0.5ML (PF), IM 01/15/2025,01/18/2024 Social History Tobacco Use Types Packs/Day Years Used Date Smoking Tobacco: Never Assessed Comments Unknown Sex and Gender Information Value Date Recorded Sex Assigned at Not on file Legal Sex Female 3:27 PM CDT Gender Identity Not on file Sexual Orientation Not on file Plan of Treatment Health Maintenance Due Date Last Done Comments DTAP/TDAP/TD VACCINES (1 - Tdap) 1973 BREAST CANCER SCREENING 1994 COLORECTAL SCREENING 1999 Colorectal Cancer Screening 1999 FIT-DNA Q 3 years 1999 FIT/FOBT Q 1 year 1999 Flex Sig/CT Colonography Q 5 years 1999 PNEUMOCOCCAL VACCINE 50+ YEA RS (1 of 1 - PCV) 2004 RSV VACCINE (60+ or ) (1 - Risk 50-74 years 1-dose series) 2004 ZOSTER VACCINE (1 of 2) 2004 OSTEOPOROSIS SCREENING 2019 INFLUENZA VACCINE Completed 01/15/2025, 01/18/2024 Insurance RX [employer] RX Member Subscriber Plan / Payer (Ef fective for All Dates) Name:Mary Beth Caicedo Relation to Subscriber:Self Name:Mary Beth Caicedo Payer ID:Not on file Group ID:[id number] Type:RX Medicare Part D Address: [place] RX [employer] (INTERNAL) [facility]
--- OUTSIDE RECORDS SUMMARY | 2025-02-02 11:57 | XMS_ITS | Encounter Summary ---
Author Organization [facility] Address [address] [place] [address] Care Team Providers Care Park Naturalist Name Role Phone Maycol Brown MD Unavailable [phone] Too Kinney MD Unavailable Unavailable Eliud Manzano MD Unavailable [phone] Pcp, [facility] Primary Care Provider Unavailable Marcelo Devine MD, Thomas Fox Unavailable Anisa vailable Marcelo Devine MD, Thomas Fox Unavailable Anisa vaDuke Aviles MD Unavailable [phone] Swetha Garland Unavailable [phone] Chiqui Mason MD Unavailable Encounter Details Date Type Department Care Team (Late st Contact Info) Description 08/16/2024 Lab Requisition [facility] - DermPath Lab [address] [place] [id number] Le Crowder MD [address] [place] [address] Neoplasm of uncertain behavior of skin Social History Tobacco Use Types Packs/Day Years Used Date Smoking Tobacco: Never Smokeless Tobacco: Never Alcohol Use Standard Drinks/Week Comments Yes 0 (1 standard drink = 0.6 oz pur e alcohol) rare PHQ-2 Answer Date Recorded Patient Health Questionnaire-2 Score 0 11/16/2023 Comments No Sex and Gender Information Value Date Recorded Sex Assigned at Not on file Legal Sex Female 6:18 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 Author Blood Pressure < 140/90 Blood Pressure 130/74(2024 1:29 PM CDT) No Taylor Leyva HEMOGLOBIN A1C < 7.0 Result Component 8.3( 11:16 AM CDT) No Taylor Leyva documented as of this encounter Procedures Procedure Name Priority Date/Time Associated Diagnosis Comments DERMATOPATHOLOGY Routine 08/16/2024 12:0 0 AM CDT Neoplasm of uncertain behavior of skin documented in this encounter Results * DERMATOPATHOLOGY (08/16/2024 12:00 AM CDT) Case Report Dermatopathology Report Case: [id number] Authorizing Provider: Le Crowder MD Collected: 08/16/2024 12:00 AM Ordering Location: [facility] - Received: 08/18/2024 12:38 PM DermPath Lab Pathologist: Edwige Fung MD Specimen: Skin, left superior lateral buccal cheek 2:07 PM CDT DERMATOPATHOLOGY LABORATORY Final Diagnosis Specimen A. SKIN, left superior lateral buccal cheek: BASAL CELL CARCINOMA, NODULAR TYPE (C44.319) 2:07 PM CDT DERMATOPATHOLOGY LABORATORY at 1407 CDT Clinical History R/O BCC 2:07 PM CDT DERMATOPATHOLOGY LABORATORY Gross Description Specimen A: Received is one formalin filled container labeled with the patient's name and designated left superior lateral buccal cheek. The specimen consists of a shave biopsy measuring 5x3x1 mm. Jar 0. 2:07 PM CDT DERMATOPATHOLOGY LABORATORY Microscopic Description Specimen A. SKIN, left superior lateral buccal cheek: Within the dermis there are aggregates of basaloid cells with a high nuclear to cytoplasmic ratio and peripheral palisading. 2:07 PM CDT DERMATOPATHOLOGY LABORATORY Disclaimer An external and internal positive and negative controls are appropriate for the histochemical, immunohistochemical and immunofluorescence stain(s) in this case (if any), except where stated explicitly. The performance characteristics of the stain(s) cited in this report were developed and its performance characteristic determined by the Dermatopathology Laboratory at [facility], directed by Dr. Salomon Agustin. These tests need not be, and therefore are not, approved by the [place] Food and Drug Administration. The tests are used for clinical purposes. Billing Codes Specimen Charges Stain Charges 57194 1 2:07 PM CDT DERMATOPATHOLOGY LABORATORY Embedded Images 2:07 PM CDT DERMATOPATHOLOGY LABORATORY Pathology/Cytolog y TISSUE SPECIMEN FROM SKIN / Unknown 08/16/2024 08/18/2024 12:38 PM CDT Le Crowder MD LAB - PATHOLOGY/CYTOLOGY ORDERAB LES Final Result DERMATOPATHOLOGY LABORATORY [facility] Department of Dermatology [address] [phone] documented in this encounter Visit Diagnoses Diagnosis Neoplasm of uncertain behavior of skin documented in this encounter Care Teams Park Naturalist Relationship Specialty Start Date End Date [facility] - [facility] 01/27/24 Roland Robertson Jr., MD PCP - Attributed-[facility] ST P4P 07/27/24 09/13/24 Roland Robertson Jr., MD PCP - Attributed-[facility] P4P 09/26/24 12/26/24 Duke Frances MD [address] [place] [address] PCP - Attributed-[facility] 11/27/24 Chiqui Mason MD [address] [facility] [address] [place] [address] PCP - Attributed-[facility] ST[facility] P4P 12/27/24 Maycol Brown MD [address] [place] [address] Gastroenterology 06/20/13 Too Kinney MD [address] [place] [address] [facility] 11/05/15 Eliud Manzano MD [address] [place] [address] Gastroenterology 07/08/22 Swetha Garland Care Coordination Specialist Care Management 01/08/25 documented as of this encounter
--- OUTSIDE RECORDS SUMMARY | 2025-02-02 11:57 | XMS_ITS ---
Author Organization [facility] Address [address] [place] [address] Care Team Providers Care Design Project Manager Name Role Phone Maycol Brown MD Unavailable Too Kinney MD Unavailable Unavailable Eliud Manzano MD Unavailable [phone] Pcp, [facility] Primary Care Provider Unavailable Duke Frances MD Unavailable Swetha Garland Unavailable Chiqui Mason MD Unavailable [facility] Status:Identified (Enrolling) Start date:01/08/2025 Enrollment reason:Identified using claims or encounter data Case Team Name Relationship Phone Swetha Garland(Responsible Staff) Care C oordination Specialist [phone] Continued Care and Services Coordination
[2025-02-02 13:00] LABS: Iron 83 ug/dL (37-170)
[2025-02-02 13:31] LABS: Percent Iron Saturation 28 % (20-50)
[2025-02-02 13:34] LABS: Thyroid Stimulating Hormone 0.492 uIU/mL (0.465-4.680)
[2025-02-02 13:36] LABS: Hepatitis B Surface Antigen Negative (Negative)
[2025-02-02 13:43] LABS: HIV 1/2 Ab P24 Ag Result Negative (Negative)
== END 2025-02-02 11:18 | disposition home or self-care (01) ==
LOC: ANHGOSHLAB 11:17
PROVIDERS: PCP Internal Medicine; Visit Provider Nurse Practitioner
DX: Z29.81 Encounter for HIV pre-exposure prophylaxis (principal); K74.60 Unspecified cirrhosis of liver; Z11.4 Encounter for screening for human immunodeficiency virus [HIV]
CPT/HCPCS: 36415; 83540; 83550; 84443; 86703; 86803; 87340; G0432